=== PATIENT | female | born 1950 | race Caucasian/White ===

== ENCOUNTER 2022-04-24 14:19 | Outpatient (CLI) | payer OTHER, SELFPAY | END 2022-04-24 14:20 | disposition home or self-care (01) | PROVIDERS: Visit Provider Family Medicine | DX: M79.662 Pain in left lower leg (principal) | CPT/HCPCS: A0425; A0427 ==

== ENCOUNTER 2022-08-07 16:00 | Emergency (ER) | payer OTHER, SELFPAY ==
[2022-08-07 16:10] VITALS: BP 114/83; PULSE 99; RESP 18; TEMP 36.3; O2SAT 90; BMI 40.9
--- NOTE | 2022-08-07 16:34 | ED_ITS ---
HPI - General Adult General Time Seen by Provider: 16:34 Date Seen: 08/07/22 Chief complaint: Ear/Nose/Throat Problem Stated complaint: Ear Infection Time Seen by Provider: 08/07/22 16:18 Source: patient Mode of arrival: EMS Limitations: physical limitation History of Present Illness HPI narrative: Patient is a 71 year white female who lives at assisted living in [place] she see an combination operator as well as a ENT doctor. She has had multiple surgeries on her right ear. She has had some right ear pain. Started amoxicillin. Her ENT in the past aside amoxicillin probably will not work for her. She continues to have ear pain. She would like a COVID test as well as it has been going around her facility. She has no other symptoms of cough or complaints no breathing difficulty, no chest pain no fevers no drainage from the ear Past medical history is significant for diabetes, multiple ear surgeries, history of chemical dependency and depression physical disability. Chart reviewed from her assisted living facility Related Data Previous Rx's Medication Instructions Recorded cephalexin 500 mg capsule 500 mg PO BID #14 caps 08/07/22 ciprofloxacin HCl 0.2 % ear drops 5 drp Otic (ear-right) BID 7 days 08/07/22 in a dropperette #14 ea Allergies Allergy/AdvReac Type Severity Reaction Status Date / Time bupropion [From Wellbutrin] Allergy Verified 08/07/22 16:23 house dust Allergy Verified 08/07/22 16:23 Iodinated Contrast Media Allergy Verified 08/07/22 16:23 prednisone Allergy Verified 08/07/22 16:23 Sulfa (Sulfonamide Allergy Verified 08/07/22 16:23 Antibiotics) cats Allergy Uncoded 08/07/22 16:23 mold Allergy Uncoded 08/07/22 16:23 Review of Systems Status of ROS: Reports: 6 or more systems reviewed and unremarkable except as noted in History and below [facility] Social History Smoking Status: Former smoker Do you use any of these nicotine containing products: None Second hand tobacco smoke exposure: No How often do you have a drink containing alcohol: never How often do you have six or more drinks on one occasion: Never AUDIT-C Alcohol total score: 0 Non-prescribed substance use: denies use service: No Exam Narrative: Exam Narrative: Objective: Patient is alert or x3 vital signs unremarkable this take oxygen at home by her history She is afebrile Right ear shows postoperative changes, some canal redness and hip an apparent redness of the area of tympanic membrane Rest of HEENT unremarkable Neurologic nonfocal good peripheral perfusion noted Const: Vital Signs, click to edit/add: Vital Signs - 24 hr 08/07/22 16:10 Temperature 97.4 F L Pulse Rate [Pulse Oximeter] 99 Respiratory Rate 18 Blood Pressure [Le ft Forearm] 114/83 Pulse Oximetry 90 Oxygen Delivery Me thod Room Air Course Vital Signs Vital signs: Initial Vital Signs Temperature 97.4 F L 08/07/22 16:10 Temperature Source Temporal Artery Scan 08/07/22 16:10 Pulse Rate 99 08/07/22 16:10 Pulse Rhythm 08/07/22 16:10 Respiratory Rate 18 08/07/22 16:10 Blood Pressure 114/83 08/07/22 16:10 Blood Pressure Mean 93 08/07/22 16:10 Blood Pressure Position Supine 08/07/22 16:10 Pulse Oximetry 90 08/07/22 16:10 Oxygen Delivery Method 08/07/22 16:10 Vital Signs Temperature 97.4 F L 08/07/22 16:10 Pulse Rate 99 08/07/22 16:10 Respiratory Rate 18 08/07/22 16:10 Blood Pressure 114/83 08/07/22 16:10 Pulse Oximetry 90 08/07/22 16:10 Oxygen Delivery Method 08/07/22 16:10 Temperature 97.4 F L 08/07/22 16:10 Pulse Rate 99 08/07/22 16:10 Respiratory Rate 18 08/07/22 16:10 Blood Pressure 114/83 08/07/22 16:10 Pulse Oximetry 90 08/07/22 16:10 Oxygen Delivery Method 08/07/22 16:10 Medical Decision Making MDM Narrative Medical decision making narrative: Patient requested the COVID test will do that a SARs antigen test. Will get her injection of Rocephin IM, have her stop amoxicillin, start Keflex 500 b.i.d. x7 days, Cipro ear drops multiple drops twice a day for the next 5-7 days, update primary care at that time certainly sooner change concerns or worsening. Upper back with the results of her COVID test Lab Data Labs: Lab Results 08/07/22 Range/Units 16:28 SARS-CoV-2 (PCR) Negative SARS-CoV-2 (Negative) Discharge Plan Discharge Clinical Impression: Otitis externa, Otitis media Patient Disposition: Home w/ Parent or Adult Condition: Stable Additional Instructions: Drops, stop amoxicillin, start Keflex, Rocephin given in the in the ER. Update regular physician the next couple of days with symptoms problems or concerns return to the ED. Activity Level: No Restrictions Discharge Diet: Regular Prescriptions: New cephalexin 500 mg capsule 500 mg PO BID Qty: 14 0RF ciprofloxacin HCl 0.2 % dropperette 5 drp Otic (ear-right) BID 7 Days Qty: 14 0RF Follow Up/Referrals: Provider,Not a Local [Primary Care Provider] - Stand Alone Forms: [employer] Info Instructions
[2022-08-07] MEDS: LIDOCAINE 1% 5 ml (pf) 5 ML VIAL 2.1 ML IM (16:46)
[2022-08-07] MEDS: cefTRIAXone 1 GM VIAL IM (16:46)
[2022-08-07 17:16] LABS: SARS PCR* Negative SARS-CoV-2 (Negative)
--- NOTE | 2022-08-07 17:38 | ED.NURSE ---
Assisted living facility contacted to give report on patient. EMS wheel transport was only option to return patient to her home.
--- NOTE | 2022-08-07 17:39 | ED.NURSE ---
Negative Covid result communicated to patient before discharge.
== END 2022-08-07 17:41 | disposition home or self-care (01) ==
LOC: ED 17:02
PROVIDERS: Emergency Provider Family Medicine
DX: H66.91 Otitis media, unspecified, right ear (principal); H60.91 Unspecified otitis externa, right ear
CPT/HCPCS: 87635; 96372; 99283; J0696

== ENCOUNTER 2022-08-07 17:21 | Outpatient (REF) | payer OTHER, SELFPAY | END 2022-08-07 17:22 | disposition home or self-care (01) | LOC: AMB 17:21 | PROVIDERS: Visit Provider Family Medicine | DX: Z99.3 Dependence on wheelchair (principal) | CPT/HCPCS: A0425; A0428 ==